=== PATIENT | female | born 1940 | race Caucasian/White ===

== ENCOUNTER 2023-10-31 11:06 | Outpatient (AMB) | payer MEDICARE, SELFPAY ==
--- NOTE | 2023-10-31 11:09 | A.OFFVIS_ITS ---
Vital Signs 10/31/23 11:11 Height 5 ft 7 in Weight 100 lb 4.965 oz BMI 15.7 BP 162/70 H Blood Pressure Location Rt brachial Position Sitting Pulse 80 Pulse Source Pulse Oximeter Pulse Oximetry (%) 98 Oxygen Delivery Method Room Air Intake Visit Reasons: Back pain/FM/CM Intake Note: New pt presents today for back pain consult. She states she has Osteoporosis. Mother had arthritis unsure if RA or OA. Dental Scheduling Coordinator Required: No Accompanied by: Spouse Allergies Benzodiazepines Adverse Reaction (Verified 10/31/23 11:14) Unknown Medication List - Last Reconciled 10/31/23 by Natalie Aceves MD ibuprofen 200 mg PO DAILY PRN HPI Comments Details: This is an 83-year-old female who presents for evaluation of diffuse pain. Patient states that she has had diffuse pain for many years has become worse over the last few years. She states that she has diffuse pain all the time. She has lower back pain and was evaluated by Dr. De La Fuente last year and had an L-[place] MRI and was told that she has significant stenosis. An injection was discussed and patient did not want to proceed with it. She also has tingling and numbness of her ankles and feet. This has been more progressive recently. He states that her balance is off. She walks with a rolling walker at home. She gets sharp headaches. She also has significant light sensitivity. She was evaluated by eye doctor in the past and no significant etiology was found. She was admitted with gallstone pancreatitis a 3-4 years ago and she has lost 25 lb since then. She states that everything has moved down hill since then. She is unaware of any family history of an autoimmune rheumatic disease. [facility] Medical History (Updated 10/31/23 @ 12:05 by Natalie Aceves MD) Aortic insufficiency Spinal stenosis Gallstone pancreatitis Osteoporosis Family History Mother Arthritis Social History Household Members: Spouse Alcohol intake: current Alcohol intake frequency: holidays/special occasions only Patient Tobacco Use Status: Never used Tobacco Female Reproductive History Menstrual Total pregnancies: 2 Ab induced: 0 Ab spontaneous: 0 Review of Systems Const Reports fatigue and Reports weight loss Eyes Reports itchy eyes and Reports photophobia ENT Reports tinnitus Card Reports dyspnea Resp Reports dyspnea Reports nocturia and Reports sexual dysfunction Musc Reports back pain, Reports arthralgias, Denies joint swelling, Reports muscle w eakness, Reports numbness and Reports tingling Skin/Breast Reports alopecia, Reports rash and Reports unusual bruising Neuro Reports numbness and Reports tingling Endo Reports fatigue Aller/Immun Reports itchy eyes Physical Exam Vital Signs: Last Vital Signs Pulse 80 10/31/23 11:11 BP 162/70 H 10/31/23 11:11 Pulse Ox 98 10/31/23 11:11 Oxygen Delivery Method Room Air 10/31/23 11:11 BMI result Body Mass Index 15.7 Const General: cooperative, healthy appearing and comfortable Nutritional Appearance: thin Orientation/consciousness: patient oriented x3 Limitations: ambulation with walker HEENT Head: Yes normocephalic and Yes atraumatic Mouth: moist mucous membranes Eyes Other: Wearing sunglasses Direct Ophthalmoscopy: photophobia Resp Effort & Inspection: normal respiratory effort and able to speak in complete sentences Auscultation: clear to auscultation bilaterally Cardio Rate: regular rate Rhythm: regular rhythm Skin General skin exam: no rashes or lesions noted Neuro Other: Mildly reduced sensation and paresthesias of both ankles and feet Intact position sense of toes General: patient oriented x3 Extrem Other: Osteoarthritic changes of both hands with no active synovitis Nailfold capillaroscopy Multiple fibromyalgia tender points Negative straight leg raise test bilaterally Assessment & Plan Assessment & Plan (1) Fibromyalgia, primary: Code(s): M79.7 - Fibromyalgia Category: Medical Plan: This is an 83-year-old female who presents for evaluation of diffuse pain. Upon evaluation I do not see any evidence of an autoimmune rheumatic disease. Clinical picture consistent with fibromyalgia I had a long conversation with patient about her diagnosis and management. Discussed management of fibromyalgia with patient. Is a noninflammatory, non- autoimmune central afferent processing disorder leading to a diffuse pain syndrome. I suggested re-evaluation by a psychotherapist to address any potential underlying anxiety/depression/PTSD. Try to follow sleep hygiene practices. Consider a referral for a sleep study by her PCP. Discussed with patient that neuralgia symptoms generally improve with regular exercise. I suggested low-impact exercises such as water aerobics. She states that she is sensitive to chlorine. I suggested light exercises at home such as stretching. Discussed with patient that she can not do any strenuous or exercises with significant twisting given her history of severe osteoporosis Medication such as Cymbalta can be considered Follow-up with PCP (2) Peripheral neuropathy: Code(s): G62.9 - Polyneuropathy, unspecified Category: Medical Qualifiers: Peripheral neuropathy type: polyneuropathy, unspecified Qualified Code(s): G62.9 - Polyneuropathy, unspecified Plan: Recommend neurology evaluation (3) Bilateral headaches: Code(s): R51.9 - Headache, unspecified Category: Medical Plan: Recommend neurology evaluation (4) Osteoporosis: Comment: Last bone density 2014, T. -4.1 AP spine, 6.6% decrease from prior, T. -3 in femoral neck, and -2.7 total femur with 7% decrease Code(s): M81.0 - Age-related osteoporosis without current pathological fracture Category: Medical Qualifiers: Osteoporosis type: age-related Presence of current pathological fracture: without current pathological fracture Qualified Code(s): M81.0 - Age- related osteoporosis without current pathological fracture Plan: Discussed with patient that she has severe osteoporosis. She is at high risk of fractures. She was evaluated by a physician in the past and she declined treatment. She again declined treatment today. She stated that she always gets side effects with any medication. Recommended vitamin-D, weight-bearing exercise and avoiding falls Plan I spent 55 minutes reviewing patient's chart, reviewing the [place] chart, evaluating patient, ordering diagnostic workup, counseling patient and documenting in the chart Coding Level of Care Code New Pt Level 4 (62840) Diagnoses Fibromyalgia, primary M79.7 Peripheral polyneuropathy G62.9 Peripheral neuropathy type: polyneuropathy, unspecified Bilateral headaches R51.9 Age-related osteoporosis without current pathological fracture M81.0 Osteoporosis type: age-related Presence of current pathological fracture: without current pathological fracture
[2023-10-31 11:11] VITALS: BP 162/70; PULSE 80; O2SAT 98; BMI 15.7
== END 2023-10-31 11:54 | disposition home or self-care (01) ==
PROVIDERS: PCP Family Medicine; Visit Provider Student in an Organized Health Care Education/Training Program
DX: M79.7 Fibromyalgia (principal); G62.9 Polyneuropathy, unspecified; R51.9 Headache, unspecified; M81.0 Age-related osteoporosis without current pathological fracture
CPT/HCPCS: 99204

== ENCOUNTER → 2023-10-31 11:06 | Outpatient (BNVA) | payer MEDICARE, SELFPAY | PROVIDERS: PCP Family Medicine; Visit Provider Student in an Organized Health Care Education/Training Program | DX: M79.7 Fibromyalgia (principal); M81.0 Age-related osteoporosis without current pathological fracture; G62.9 Polyneuropathy, unspecified; R51.9 Headache, unspecified | CPT/HCPCS: 99202 ==

== ENCOUNTER 2023-11-13 14:46 | Outpatient (AMB) | payer MEDICARE, SELFPAY ==
--- NOTE | 2023-11-13 15:06 | A.OFFPC_ITS ---
Vital Signs 11/13/23 15:07 Height 5 ft 7 in Weight 99 lb 2 oz BMI 15.5 BP 146/86 H Blood Pressure Location Lt brachial Position Sitting Respiration 12 Pulse 81 Pulse Source Pulse Oximeter Pulse Oximetry (%) 99 Oxygen Delivery Method Room Air Intake Visit Reasons: Establish Care first time being seen Intake Note: Patient is here to establish care. Patient reports she takes no medications and considers herself a medical mystery. Patient reports she has been diagnosed with fibromyalgia and osteoporosis. Editor Map Required: No Accompanied by: Spouse Allergies Benzodiazepines Adverse Reaction (Verified 11/13/23 15:19) Unknown Tobacco use date assessed: 11/13/23 Fall risk assessment: No Falls in past year Last assessed Fall Risk: 11/13/23 Dental Screening Dental Screen Date: 11/13/23 Did you have a dental visit in the last 12 months?: Yes Did you have a dental problem in the last 6 months where you did not have access to dental care?: No Was dental information given to patient?: Patient has dentist HPI HPI Comments History of Present Illness Details This is an 83-year-old female with a past medical history of polya rthralgia, headaches, fibromyalgia, neuropathy presenting to establish care. Transfer from [facility]. [facility] -Was seen in walk in for evaluation of d iffuse pain. Referred to rheumatology. She has seen them-Dr Aceves. There was no evidence on exam of rheumatologic process at the times. Clinical and physical exam c/w fibromyalgia. She has been very intolerant of medications in the past. She would consider rightmed testing. - She has lower back pain and was evalua raj by Dr. De La Fuente last year and had an L-spine MRI and was told that she has significant stenosis. An injection was discussed and patient did not want to proceed with it. She also has tingling and numbness of her ankles and feet. This has been more progressive recently. He states that her balance is off. She walks with a rolling walker at home. Neuro- She gets sharp headaches, sometimes tingling, burning. She also has significant light sensitivity. She was evaluated by eye doctor in the past and no significant etiology was found. She was admitted with gallstone pancreatitis a 3-4 years ago and she has lost 25 lb since then. She states that everything has moved down hill since then. ROS see HPI PHYSICAL EXAM: GENERAL: Alert and oriented x 3. NAD EYES: EOMI. Anicteric. No temporal artery swelling HENT: Moist mucous membranes. No scleral icterus. No cervical lymphadenopathy. LUNGS: Clear to auscultation bilaterally. CARDIOVASCULAR: Regular rate and rhythm. No murmur. No JVD. ABDOMEN: Soft, non-tender +bs EXTREMITIES: No edema. Non-tender. MSK: No joint warmth. Mild hypertrophy PIP, DIP joints SKIN: No rashes or lesions. Warm. NEUROLOGIC: No focal neurological deficits. CN II-XII grossly intact PSYCHIATRIC: Cooperative. Appropriate mood and affect [facility] Medical History Aortic insufficiency Spinal stenosis Gallstone pancreatitis Osteoporosis Surgical History No pertinent past surgical history Family History Mother Arthritis Father Alcohol abuse Social History Household Members: Spouse Housing: House Alcohol intake: never Patient Tobacco Use Status: Never used Tobacco e-Cigarette/Vaping Use: Never Used service: No Current occupational status: retired Current occupational exposures/hazards: No Cognitive needs: No Hearing needs: No Vision needs: Yes Questionnaire PHQ-9 Over the last 2 weeks, how often have you been bothered by any of the following problems? 1. Little interest or pleasure in doing things: not at all 2. Feeling down, depressed, or hopeless: not at all 3. Trouble falling or staying asleep, or sleeping too much: not at all 4. Feeling tired or having little energy: several days 5. Poor appetite or overeating: not at all 6. Feeling bad about yourself - or that you are a failure or have let yourself or your family down: not at all 7. Trouble concentrating on things, such as reading the newspaper or watching television: not at all 8. Moving or speaking so slowly that other people could have noticed. Or the opposite - being so fidgety or restless that you have been moving around a lot more than usual: nearly every day 9. Thoughts that you would be better off or of hurting yourself in some way: not at all Total score: 4 Depression Screening Interpretation: Negative Depression Screening Done: Yes 46247 - PHQ-9 Billing: Yes Source: Developed by Drs. Tye Sutton, Olena Pappas, Denis Vasquez and colleagues, with an educational misael from [employer]. Thrive Questionnaire Date Thrive assessed: 11/13/23 I am a: Patient What is your living situation today?: I have a steady place to live Within the past 12 months, did the food you bought not last and you didn't have the money to get more?: Never true Within the past 12 months, did you worry whether your food would run out before you got money to buy more?: Never true Do you have trouble paying for medicines?: No Do you have trouble getting transportation to medical appointments?: No Do you have trouble paying your heating and electricity bill?: No Do you have trouble taking care of your child, family member or friend?: No Do you have trouble with day-to-day activities such as bathing, preparing meals, shopping, managing finances, etc.?: No Are you currently unemployed and looking for a job?: No Are you interested in more education?: No Please select the resources that you would like help with: None Currently or been in a relationship where the following occur: No concerns reported THRIVE Score: 0 AUDIT C Alcohol Use Questionnaire (AUDIT-C) 1. How often do you have a drink containing alcohol?: Never 3. How often do you have six or more drinks on one occasion?: Never Total Score: 0 MARCIAL-7 AMB Questionnaire MARCIAL-7 Date MARCIAL - 7 assessed: 11/13/23 Feeling nervous, anxious, or on edge: 0 = Not at all Not being able to stop or control worryin = Not at all Worrying too much about different things: 0 = Not at all Trouble relaxin = Not at all Being so restless that it is hard to sit still: 0 = Not at all Becoming easily annoyed or irritable: 0 = Not at all Feeling afraid as if something awful might happen: 0 = Not at all Total MARCIAL-7 score (0-4 normal; 5-9 mild; 10-14 moderate; 15-21 severe): 0 Source: Developed by Drs. Tye Sutton, Olena Pappas, Denis Vasquez and colleagues, with an educational misael from [employer] MARCIAL-7 Assessment Billing MARCIAL-7 Assessment Tool: MARCIAL-7 Assessment 58604 Physical exam (Primary Care) Vital Signs: Last Vital Signs Pulse 81 11/13/23 15:07 Resp 12 11/13/23 15:07 BP 146/86 H 11/13/23 15:07 Pulse Ox 99 11/13/23 15:07 Oxygen Delivery Method Room Air 11/13/23 15:07 BMI result Body Mass Index 15.5 Tobacco/Smoking Status: Tobacco use Status Tobacco use date assessed 11/13/23 11/13/23 15:21 Patient Tobacco Use Status Never used Tobacco 11/13/23 15:24 e-Cigarette/Vaping Use Never Used 11/13/23 15:24 PHQ-9: PHQ-9 Score PHQ-9: Total score 4 11/18/23 10:29 Depression Screening Interpretation: Negative Thrive Assessment: Date of Thrive Assessment Date Thrive assessed 11/13/23 11/13/23 15:21 Currently or been in a relationship where the following occur: No concerns reported Assessment and Plan Assessment & Plan (1) Osteoporosis: Code(s): M81.0 - Age-related osteoporosis without current pathological fracture Qualifiers: Osteoporosis type: age-related Presence of current pathological fracture: without current pathological fracture Qualified Code(s): M81.0 - Age- related osteoporosis without current pathological fracture Plan: declines treatment (2) Fibromyalgia, primary: Code(s): M79.7 - Fibromyalgia Plan: plan for rightmed testing (3) Peripheral neuropathy: Code(s): G62.9 - Polyneuropathy, unspecified Qualifiers: Peripheral neuropathy type: polyneuropathy, unspecified Qualified Code(s): G62.9 - Polyneuropathy, unspecified (4) Bilateral headaches: Code(s): R51.9 - Headache, unspecified Plan: check ESR, CRP in setting of vision changes, polyarthralgia Orders: Orders Lyme IgG/IgM w/reflex to WB 11/16/23 G62.9 - Polyneuropathy, unspecified, M79.7 - Fibromyalgia, M81.0 - Age-related osteoporosis without current pathological fracture, R51.9 - Headache, unspecified Comprehensive Met. Panel 11/16/23 G62.9 - Polyneuropathy, unspecified, M79.7 - Fibromyalgia, M81.0 - Age-related osteoporosis without current pathological fracture, R51.9 - Headache, unspecified Rheumatoid Factor 11/16/23 G62.9 - Polyneuropathy, unspecified, M79.7 - Fibromyalgia, M81.0 - Age-related osteoporosis without current pathological fracture, R51.9 - Headache, unspecified Cyclic Citrullinated Peptide 11/16/23 G62.9 - Polyneuropathy, unspecified, M79.7 - Fibromyalgia, M81.0 - Age-related osteoporosis without current pathological fracture, R51.9 - Headache, unspecified FARHANA Reflex Titer and Pattern 11/16/23 G62.9 - Polyneuropathy, unspecified, M79.7 - Fibromyalgia, M81.0 - Age-related osteoporosis without current pathological fracture, R51.9 - Headache, unspecified Erythrocyte Sedimentation Rate 11/16/23 G62.9 - Polyneuropathy, unspecified, M79.7 - Fibromyalgia, M81.0 - Age-related osteoporosis without current p athological fracture, R51.9 - Headache, unspecified Complete Blood Count Auto Diff 11/16/23 G62.9 - Polyneuropathy, unspecified, M79.7 - Fibromyalgia, M81.0 - Age-related osteoporosis without current pathological fracture, R51.9 - Headache, unspecified Coding Level of Care Code New Pt Level 5 (06791) Diagnoses Age-related osteoporosis without current pathological fracture M81.0 Osteoporosis type: age-related Presence of current pathological fracture: without current pathological fracture Fibromyalgia, primary M79.7 Peripheral polyneuropathy G62.9 Peripheral neuropathy type: polyneuropathy, unspecified Bilateral headaches R51.9 Additional Codes MARCIAL-7 Assessment Billing - MARCIAL-7 Assessment Tool: MARCIAL-7 Assessment 66785 ([id number]) Time Spent (min) 70
[2023-11-13 15:07] VITALS: BP 146/86; PULSE 81; RESP 12; O2SAT 99; BMI 15.5
== END 2023-11-13 16:36 | disposition home or self-care (01) ==
PROVIDERS: PCP Internal Medicine; Visit Provider Internal Medicine
DX: M81.0 Age-related osteoporosis without current pathological fracture (principal); M79.7 Fibromyalgia; G62.9 Polyneuropathy, unspecified; R51.9 Headache, unspecified
CPT/HCPCS: 99205

== ENCOUNTER 2023-11-16 10:23 | Outpatient (REF) | payer MEDICARE, SELFPAY ==
[2023-11-16 14:04] LABS: MANUAL DIFF FLAG NO
[2023-11-16 14:22] LABS: Basophils Absolute Auto 0.1 X10*3/uL (0.0-0.2); Basophils Percent Auto 1.6 % (0-2); Eosinophils Absolute Auto 0.1 X10*3/uL (0.0-0.4); Hematocrit 34.8 % (37.0-47.0); Hemoglobin 11.5 g/dl (12.0-16.0); Imm Gran Abs Auto 0.02 X10*3/uL (0.00-0.03); Imm Gran Pct Auto 0.4 % (0.0-0.4); Lymphocytes Absolute Auto 1.4 X10*3/uL (1.2-4.9); Lymphocytes Percent Auto 27.6 % (20-40); Mean Corpuscular Hemoglobin 31.3 pg (27.0-33.0); Mean Corpuscular Volume 94.6 fL (80.0-98.0); Mean Platelet Volume 10.3 fL (9.4-12.3); Monocytes Absolute Auto 0.6 X10*3/uL (0.1-1.2); Monocytes Percent Auto 12.5 % (2-11); Neutrophils Absolute Auto 2.9 x10*3/uL (2.0-8.3); Neutrophils Percent Auto 56.9 % (45-73); Platelet Count 223 X10*3/uL (160-400); Red Blood Count 3.68 X10*6/uL (4.20-5.50); Red Cell Distribution Width 13.5 % (11.0-16.0)
[2023-11-16 14:30] LABS: Alanine Aminotransferase 16 U/L (0-31); Albumin Level 4.5 g/dL (3.5-5.0); Alkaline Phosphatase 69 U/L (39-117); Anion Gap 11 (12-20); Aspartate Amino Transferase 24 U/L (5-31); Bilirubin Total 1.1 mg/dL (0.0-1.0); Blood Urea Nitrogen 20 mg/dL (9-16); Calcium 9.9 mg/dL (8.4-10.2); Carbon Dioxide 31 mmol/L (22-29); Chloride 103 mmol/L (96-108); Estimated Glomerular Filt Rate 51; Glucose Random 74 mg/dL (60-115); Potassium 4.2 mmol/L (3.3-5.1); Sodium 141 mmol/L (135-145); Total Protein 6.9 g/dL (6.5-8.0)
[2023-11-16 14:31] LABS: Rheumatoid Factor 19.6 IU/mL (<15.0)
[2023-11-16 15:25] LABS: Erythrocyte Sedimentation Rate 6 MM/HR (0-20)
[2023-11-19 17:33] LABS: Lyme Abs Screen <0.90 index
[2023-11-21 09:34] LABS: Cyclic Citrullinated Peptide <16 UNITS
[2023-11-22 15:13] LABS: Anti Nuclear Antibody Screen NEGATIVE (NEGATIVE)
== END 2023-11-16 10:24 | disposition home or self-care (01) ==
LOC: HO.WFDLDS 10:23
PROVIDERS: Visit Provider Internal Medicine
DX: M81.0 Age-related osteoporosis without current pathological fracture (principal); R51.9 Headache, unspecified; G62.9 Polyneuropathy, unspecified; M79.7 Fibromyalgia
CPT/HCPCS: 36415; 80053; 85025; 85652; 86038; 86200; 86431; 86617; 86618

== ENCOUNTER 2024-03-31 15:50 | Outpatient (AMB) | payer MEDICARE, SELFPAY ==
--- NOTE | 2024-03-31 16:08 | A.OFFPC_ITS ---
Vital Signs 03/31/24 16:14 03/31/24 16:16 Height 5 ft 7 in Weight 98 lb 2 oz BMI 15.4 BP 158/88 H 150/86 H Blood Pressure Location Rt brachial Rt brachial Position Sitting Sitting Pulse 90 Pulse Source Pulse Oximeter Pulse Oximetry (%) 97 Oxygen Delivery Method Room Air Intake Visit Reasons: PE Intake Note: Medical wellness visit Allergies Benzodiazepines Adverse Reaction (Verified 03/31/24 16:09) Unknown Tobacco use date assessed: 11/13/23 Dental Screening Dental Screen Date: 11/13/23 HPI HPI Comments History of Present Illness Details This is an 83-year-old female with a past medical history of polyarthralgia, headaches, fibromyalgia, neuropathy presenting for physical exam Ongoing constellation of issues -Polyarthralgia, polymyalgia. Headaches. Vision issues. Neuritis, neuralgia. MSK: Referred to rheumatology. She has seen them-Dr Aceves. There was no evidence on exam of rheumatologic process at the times. Clinical and physical exam c/w fibromyalgia. She has been very intolerant of medications in the past. She would consider rightmed testing. She does have a remote history of - She has lower back pain and was evalua raj by Dr. De La Fuente last year and had an L-spine MRI and was told that she has significant stenosis. An injection was discussed and patient did not want to proceed with it. She also has tingling and numbness of her ankles and feet. This has been more progressive recently. He states that her balance is off. She walks with a rolling walker at home. Neuro- She gets sharp headaches, sometimes tingling, burning. She also has significant light sensitivity. She was evaluated by eye doctor in the past and no significant etiology was found. She was admitted with gallstone pancreatitis a 3-4 years ago and she has lost 25 lb since then. She states that everything has gone down hill since then. Stopped mammograms at 72 Stopped colonoscopy ROS see HPI PHYSICAL EXAM: GENERAL: Alert and oriented x 3. NAD EYES: EOMI. Anicteric. No temporal artery swelling HENT: Moist mucous membranes. No scleral icterus. No cervical lymphadenopathy. LUNGS: Clear to auscultation bilaterally. CARDIOVASCULAR: Regular rate and rhythm. No murmur. No JVD. ABDOMEN: Soft, non-tender +bs EXTREMITIES: No edema. Non-tender. MSK: No joint warmth. Mild hypertrophy PIP, DIP joints SKIN: No rashes or lesions. Warm. NEUROLOGIC: No focal neurological deficits. CN II-XII grossly intact PSYCHIATRIC: Cooperative. Appropriate mood and affect [facility] Medical History Aortic insufficiency Spinal stenosis Gallstone pancreatitis Osteoporosis Surgical History No pertinent past surgical history Family History Mother Arthritis Father Alcohol abuse Social History (Updated 03/31/24 @ 16:13 by Georgiana Stanley CMA) Household Members: Spouse Housing: House 75 years or older and lives alone: No Alcohol intake: former Patient Tobacco Use Status: Never used Tobacco e-Cigarette/Vaping Use: Never Used service: No Current occupational status: retired Current occupational exposures/hazards: No Cognitive needs: No Hearing needs: No Vision needs: Yes Questionnaire PHQ-9 Over the last 2 weeks, how often have you been bothered by any of the following problems? 1. Little interest or pleasure in doing things: not at all 2. Feeling down, depressed, or hopeless: not at all 3. Trouble falling or staying asleep, or sleeping too much: not at all 4. Feeling tired or having little energy: nearly every day 5. Poor appetite or overeating: not at all 6. Feeling bad about yourself - or that you are a failure or have let yourself or your family down: not at all 7. Trouble concentrating on things, such as reading the newspaper or watching television: not at all 8. Moving or speaking so slowly that other people could have noticed. Or the opposite - being so fidgety or restless that you have been moving around a lot more than usual: not at all 9. Thoughts that you would be better off or of hurting yourself in some way: not at all Total score: 3 Depression Screening Interpretation: Negative (neg) Depression Screening Done: Yes 29848 - PHQ-9 Billing: Patient declined-do not bill Source: Developed by Drs. Tye Sutton, Olena Pappas, Denis Vasquez and colleagues, with an educational misael from [employer]. Thrive Questionnaire Date Thrive assessed: 03/25/24 I am a: Patient What is your living situation today?: I have a steady place to live Within the past 12 months, did the food you bought not last and you didn't have the money to get more?: Never true Within the past 12 months, did you worry whether your food would run out before you got money to buy more?: Never true Do you have trouble paying for medicines?: No Do you have trouble getting transportation to medical appointments?: No Do you have trouble paying your heating and electricity bill?: No Do you have trouble taking care of your child, family member or friend?: No Do you have trouble with day-to-day activities such as bathing, preparing meals, shopping, managing finances, etc.?: No Are you currently unemployed and looking for a job?: No Are you interested in more education?: No Please select the resources that you would like help with: None Currently or been in a relationship where the following occur: No concerns rep orted THRIVE Score: 0 AUDIT C Alcohol Use Questionnaire (AUDIT-C) 1. How often do you have a drink containing alcohol?: Never 3. How often do you have six or more drinks on one occasion?: Never Total Score: 0 MARCIAL-7 AMB Questionnaire MARCIAL-7 Date MARCIAL - 7 assessed: 03/31/24 Feeling nervous, anxious, or on edge: 0 = Not at all Not being able to stop or control worryin = Not at all Worrying too much about different things: 0 = Not at all Trouble relaxin = Not at all Being so restless that it is hard to sit still: 0 = Not at all Becoming easily annoyed or irritable: 0 = Not at all Feeling afraid as if something awful might happen: 0 = Not at all Total MARCIAL-7 score (0-4 normal; 5-9 mild; 10-14 moderate; 15-21 severe): 0 Source: Developed by Drs. Tye Sutton, Olena Pappas, Denis Vasquez and colleagues, with an educational misael from [employer]. MARCIAL-7 Assessment Billing MARCIAL-7 Assessment Tool: MARCIAL-7 Assessment 34813 Physical exam (Primary Care) Vital Signs: Last Vital Signs Pulse 90 03/31/24 16:14 BP 150/86 H 03/31/24 16:16 Pulse Ox 97 03/31/24 16:14 Oxygen Delivery Method Room Air 03/31/24 16:14 BMI result Body Mass Index 15.4 Tobacco/Smoking Status: Tobacco use Status Tobacco use date assessed 11/13/23 03/31/24 16:15 Patient Tobacco Use Status Never used Tobacco 03/31/24 16:15 e-Cigarette/Vaping Use Never Used 03/31/24 16:15 PHQ-9: PHQ-9 Score PHQ-9: Total score 3 04/01/24 13:48 Depression Screening Interpretation: Negative (neg) Thrive Assessment: Date of Thrive Assessment Date Thrive assessed 03/25/24 03/31/24 16:15 Currently or been in a relationship where the following occur: No concerns reported Coding Level of Care Code Est Pt Prev Care >65y(62274) Diagnoses Physical exam Z00.00 Polymyalgia M35.3 Polyarthralgia M25.50 Additional Codes MARCIAL-7 Assessment Billing - MARCIAL-7 Assessment Tool: MARCIAL-7 Assessment 33259 ([id number]) Assessment & Plan Assessment & Plan (1) Physical exam: Code(s): Z00.00 - Encounter for general adult medical examination without abnormal findings Category: Medical Plan: Preventive measures discussed Declines flu vaccine (2) Polymyalgia: Code(s): M35.3 - Polymyalgia rheumatica Category: Medical Plan: Last ESR was normal. RF slightly positive Trial 5mg prednisone daily. Aware of effect on bones Right med testing continue ophtho Referral to neurology for headaches, vision changes, neuropathy (3) Polyarthralgia: Code(s): M25.50 - Pain in unspecified joint Category: Medical Plan: see above Orders: Orders PT Evaluation and Treatment 03/31/24 R42 - Dizziness and giddiness Referrals Neurology Referral G62.9 - Polyneuropathy, unspecified, R42 - Dizziness and giddiness, R51.9 - Headache, unspecified Medications: New prednisone 5 mg PO DAILY 30 tabs 0RF
[2024-03-31 16:14] VITALS: BP 158/88; PULSE 90; O2SAT 97; BMI 15.4
[2024-03-31 16:16] VITALS: BP 150/86
== END 2024-03-31 17:01 | disposition home or self-care (01) ==
PROVIDERS: PCP Internal Medicine; Visit Provider Internal Medicine
DX: Z00.00 Encounter for general adult medical examination without abnormal findings (principal); M35.3 Polymyalgia rheumatica; M25.50 Pain in unspecified joint

== ENCOUNTER → 2024-03-31 15:50 | Outpatient (BNVA) | payer MEDICARE, SELFPAY | PROVIDERS: PCP Internal Medicine; Visit Provider Internal Medicine | DX: Z00.00 Encounter for general adult medical examination without abnormal findings (principal); M25.50 Pain in unspecified joint; M79.7 Fibromyalgia; M35.3 Polymyalgia rheumatica; G62.9 Polyneuropathy, unspecified; R42 Dizziness and giddiness; R51.9 Headache, unspecified | CPT/HCPCS: 96127; 99397 ==

== ENCOUNTER 2025-04-03 14:11 | Outpatient (AMB) | payer MEDICARE, SELFPAY ==
--- NOTE | 2025-04-03 14:20 | A.OFFPC_ITS ---
Vital Signs 04/03/25 14:25 Weight 94 lb 4 oz BP 177/96 H Blood Pressure Location Lt brachial Position Sitting Respiration 14 Pulse 85 Pulse Source Pulse Oximeter Temp 97.9 F Temp Source Oral Pulse Oximetry (%) 98 Oxygen Delivery Method Room Air Intake Visit Reasons: cpe Intake Note: Physical. Vertigo is worsening. 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 Headaches. Vision issues. Neuritis, neuralgia. -Worsening vertigo. Previously seen by Dr Melyssa DUMAS. Has been intolerant benzos in the past. Does not think she tried meclizine. MSK: Referred to rheumatology. She has seen them-Dr Aceves. There was no evidence on exam of rheumatologic process at the times. Clinical and physical exam c/w fibromyalgia. She has been very intolerant of medications in the past. She does tolerate prednisone and would like to take a small daily dose. - She has lower back pain and was evalua raj by Dr. De La Fuente last year and had an L-spine MRI and was told that she has significant stenosis. An injection was discussed and patient did not want to proceed with it. She also has tingling and numbness of her ankles and feet. Neuro- She gets sharp headaches, sometimes tingling, burning. She also has significant light sensitivity. She was evaluated by eye doctor in the past and no significant etiology was found. She was admitted with gallstone pancreatitis a 4-5 years ago and she has lost 25 lb since then. She states that everything has gone down hill since then. Stopped mammograms at 72 Stopped colonoscopy ROS see HPI PHYSICAL EXAM: GENERAL: Alert and oriented x 3. NAD EYES: EOMI. Anicteric. No temporal artery swelling HENT: Moist mucous membranes. No scleral icterus. No cervical lymphadenopathy. LUNGS: Clear to auscultation bilaterally. CARDIOVASCULAR: Regular rate and rhythm. PVC. +murmur No JVD. ABDOMEN: Soft, non-tender +bs EXTREMITIES: No edema. Non-tender. MSK: No joint warmth. Mild hypertrophy PIP, DIP joints SKIN: No rashes or lesions. Warm. NEUROLOGIC: No focal neurological deficits. CN II-XII grossly intact PSYCHIATRIC: Cooperative. Appropriate mood and affect [facility] Medical History (Updated 04/06/25 @ 06:42 by Carmen Lopez MD) Aortic insufficiency Spinal stenosis Gallstone pancreatitis Osteoporosis Surgical History No pertinent past surgical history Family History Mother Arthritis Father Alcohol abuse Social History Household Members: Spouse Housing: House 75 years or older and lives alone: No Alcohol intake: former Patient Tobacco Use Status: Never used Tobacco e-Cigarette/Vaping Use: Never Used service: No Current occupational status: retired Current occupational exposures/hazards: No Cognitive needs: No Hearing needs: No Vision needs: Yes Questionnaire PHQ-9 Over the last 2 weeks, how often have you been bothered by any of the following problems? 1. Little interest or pleasure in doing things: not at all 2. Feeling down, depressed, or hopeless: not at all 3. Trouble falling or staying asleep, or sleeping too much: not at all 4. Feeling tired or having little energy: several days 5. Poor appetite or overeating: not at all 6. Feeling bad about yourself - or that you are a failure or have let yourself or your family down: not at all 7. Trouble concentrating on things, such as reading the newspaper or watching television: not at all 8. Moving or speaking so slowly that other people could have noticed. Or the opposite - being so fidgety or restless that you have been moving around a lot more than usual: not at all 9. Thoughts that you would be better off or of hurting yourself in some way: not at all Total score: 1 Source: Developed by Drs. Tye Sutton, Olena Pappas, Denis Vasquez and colleagues, with an educational misael from [employer]. Thrive Questionnaire Date Thrive assessed: 04/01/25 I am a: Patient What is your living situation today?: I have a steady place to live Within the past 12 months, did the food you bought not last and you didn't have the money to get more?: Never true Within the past 12 months, did you worry whether your food would run out before you got money to buy more?: Never true Do you have trouble paying for medicines?: No Do you have trouble getting transportation to medical appointments?: No Do you have trouble paying your heating and electricity bill?: No Do you have trouble taking care of your child, family member or friend?: No Do you have trouble with day-to-day activities such as bathing, preparing meals, shopping, managing finances, etc.?: I choose not to answer this question Are you currently unemployed and looking for a job?: No Are you interested in more education?: No Please select the resources that you would like help with: None Currently or been in a relationship where the following occur: No concerns reported THRIVE Score: 0 MARCIAL-7 AMB Questionnaire MARCIAL-7 Date MARCIAL - 7 assessed: 03/31/24 Source: Developed by Drs. Tye Sutton, Olena Pappas, Denis Vasquez and colleagues, with an educational misael from [employer]. Physical exam (Primary Care) Vital Signs: Last Vital Signs Temp 97.9 F 04/03/25 14:25 Pulse 85 04/03/25 14:25 Resp 14 04/03/25 14:25 BP 177/96 H 04/03/25 14:25 Pulse Ox 98 04/03/25 14:25 Oxygen Delivery Method Room Air 04/03/25 14:25 Tobacco/Smoking Status: Tobacco use Status Tobacco use date assessed 04/03/25 04/03/25 14:29 Patient Tobacco Use Status Never used Tobacco 04/03/25 14:20 e-Cigarette/Vaping Use Never Used 04/03/25 14:20 PHQ-9: PHQ-9 Score PHQ-9: Total score 1 04/03/25 14:37 Thrive Assessment: Date of Thrive Assessment Date Thrive assessed 04/01/25 04/03/25 14:20 Currently or been in a relationship where the following occur: No concerns reported Coding Level of Care Code Est Pt Prev Care >65y(04021) Diagnoses Physical exam Z00.00 Polyarthralgia M25.50 Benign paroxysmal positional vertigo, unspecified laterality H81.10 Laterality: unspecified laterality Irregular heart beat I49.9 Assessment & Plan Assessment & Plan (1) Physical exam: Code(s): Z00.00 - Encounter for general adult medical examination without abnormal findings Category: Medical (2) Polyarthralgia: Code(s): M25.50 - Pain in unspecified joint Category: Medical (3) BPPV (benign paroxysmal positional vertigo): Code(s): H81.10 - Benign paroxysmal vertigo, unspecified ear Category: Medical Qualifiers: Laterality: unspecified laterality Qualified Code(s): H81.10 - Benign paroxysmal vertigo, unspecified ear (4) Irregular heart beat: Code(s): I49.9 - Cardiac arrhythmia, unspecified Category: Medical Plan 84 year old female for CPE Interval history reviewed. Vertigo-PT referral placed. Trial meclizine. Consider imaging if persistent Echo for aortic insuff, PVCs, shortness of breath. . Labs ordered Requests cologuard testing. Orders: Orders Comprehensive Met. Panel 04/03/25 I49.9 - Cardiac arrhythmia, unspecified, R01.1 - Cardiac murmur, unspecified Lipid Panel 04/03/25 I49.9 - Cardiac arrhythmia, unspecified, R01.1 - Cardiac murmur, unspecified Magnesium 04/03/25 I49.9 - Cardiac arrhythmia, unspecified, R01.1 - Cardiac murmur, unspecified TSH reflex Free T4 04/03/25 I49.9 - Cardiac arrhythmia, unspecified, R01.1 - Cardiac murmur, unspecified PT Evaluation and Treatment 04/03/25 H81.10 - Benign paroxysmal vertigo, unspecified ear CA echo transthoracic complete 04/03/25 I49.9 - Cardiac arrhythmia, unspecified, R01.1 - Cardiac murmur, unspecified Complete Blood Count Auto Diff 04/03/25 I49.9 - Cardiac arrhythmia, unspecified, R01.1 - Cardiac murmur, unspecified Referrals Cologuard Test Z12.11 - Encounter for screening for malignant neoplasm of colon, Z12.12 - Encounter for screening for malignant neoplasm of rectum Medications: New meclizine 25 mg PO DAILY PRN 30 tabs 3RF vertigo 30 days Refilled prednisone 5 mg PO DAILY 90 tabs 1RF
[2025-04-03 14:25] VITALS: BP 177/96; PULSE 85; RESP 14; TEMP 36.6; O2SAT 98
== END 2025-04-03 15:28 | disposition home or self-care (01) ==
LOC: HO.HMCFM 14:12
PROVIDERS: PCP Internal Medicine; Visit Provider Internal Medicine
DX: Z00.00 Encounter for general adult medical examination without abnormal findings (principal); M25.50 Pain in unspecified joint; H81.10 Benign paroxysmal vertigo, unspecified ear; I49.9 Cardiac arrhythmia, unspecified

== ENCOUNTER → 2025-04-03 14:11 | Outpatient (BNVA) | payer MEDICARE, SELFPAY | PROVIDERS: PCP Internal Medicine; Visit Provider Internal Medicine | DX: Z00.00 Encounter for general adult medical examination without abnormal findings (principal); M25.50 Pain in unspecified joint; H81.10 Benign paroxysmal vertigo, unspecified ear; I49.9 Cardiac arrhythmia, unspecified; R01.1 Cardiac murmur, unspecified; G62.9 Polyneuropathy, unspecified; R51.9 Headache, unspecified; M48.061 Spinal stenosis, lumbar region without neurogenic claudication; M79.7 Fibromyalgia; Z12.11 Encounter for screening for malignant neoplasm of colon; Z12.12 Encounter for screening for malignant neoplasm of rectum; Z13.30 Encounter for screening examination for mental health and behavioral disorders, unspecified | CPT/HCPCS: 96127; 99397 ==

== ENCOUNTER 2025-04-06 13:49 | Outpatient (REF) | payer MEDICARE, SELFPAY ==
[2025-04-06 18:28] LABS: MANUAL DIFF FLAG NO
[2025-04-06 18:40] LABS: Hematocrit 36.0 % (37.0-47.0); Hemoglobin 11.5 g/dl (12.0-16.0); Imm Gran Abs Auto 0.02 X10*3/uL (0.00-0.03); Imm Gran Pct Auto 0.4 % (0.0-0.4); Lymphocytes Absolute Auto 1.6 X10*3/uL (1.2-4.9); Mean Corpuscular HGB Conc 31.9 g/dl (31.0-35.0); Mean Corpuscular Hemoglobin 30.0 pg (27.0-33.0); Mean Corpuscular Volume 94.0 fL (80.0-98.0); NRBC Abs Auto 0.000 X10*3/uL (0.0-0.012); NRBC Pct Auto 0.0 /100WBC (0.0-0.2); Platelet Count 200 X10*3/uL (160-400); Red Blood Count 3.83 X10*6/uL (4.20-5.50); White Blood Count 5.4 X10*3/uL (4.8-10.8)
[2025-04-06 19:09] LABS: Alanine Aminotransferase 19 U/L (0-31); Albumin Level 4.5 g/dL (3.5-5.0); Alkaline Phosphatase 66 U/L (39-117); Anion Gap 9 (12-20); Aspartate Amino Transferase 29 U/L (5-31); Blood Urea Nitrogen 23 mg/dL (9-16); Calcium 9.4 mg/dL (8.4-10.2); Carbon Dioxide 29 mmol/L (22-29); Chloride 108 mmol/L (96-108); Cholesterol 243 mg/dL (<200); Estimated Glomerular Filt Rate 48; HDL Cholesterol 95 mg/dL (>40); Magnesium 2.1 mg/dL (1.6-2.6); Potassium 3.9 mmol/L (3.3-5.1); Sodium 142 mmol/L (135-145); Total Protein 6.5 g/dL (6.5-8.0); Triglycerides 88 mg/dL (<150)
== END 2025-04-06 13:50 | disposition home or self-care (01) ==
LOC: HO.WFDLDS 13:49
PROVIDERS: Visit Provider Internal Medicine
DX: Z13.6 Encounter for screening for cardiovascular disorders (principal); R01.1 Cardiac murmur, unspecified; I49.9 Cardiac arrhythmia, unspecified
CPT/HCPCS: 36415; 80053; 80061; 83735; 84443; 85025

== ENCOUNTER → 2025-05-13 12:55 | Outpatient (REF) | payer MEDICARE, SELFPAY ==
--- NOTE | 2025-05-13 12:59 | CA_ITS ---
Transthoracic Echocardiogram Patient (Last, First, Middle): Marilee Malone, Gender: F Date of : 1940 Age: 84 Procedure Date: 05/13/2025 Procedure Type: Transthoracic Echocardiogram Location: OP Height: 167.64 cm Weight: 42.64 kg BSA: 1.45 m2 Heart Rate: 90 bpm BP: 158 / 72 mmHg Pmp Certified Project Manager: SB Referring MD: Carmen Lopez MD Symptoms: R01.1 - Cardiac murmur, unspecified Study Quality: Adequate ECG Rhythm: Sinus with PVCs Conclusions: - The left ventricular systolic function is normal. The calculated ejection fraction is 63% by biplane method. - Moderately increased right ventricular cavity size. - There is moderate tricuspid valve regurgitation. Findings Left Ventricle Normal left ventricular cavity size. The left ventricular systolic function is normal. The calculated ejection fraction is 63% by biplane method. There is no evidence of regional wall motion abnormalities. Evidence suggests grade I (mild) diastolic dysfunction. Severe focal hypertrophy of the basal septum. Right Ventricle Moderately increased right ventricular cavity size. There is normal right ventricular systolic function. Atria The left atrium is normal in size. The right atrium is moderately dilated. Aortic Valve There is mild calcification of the aortic valve. There is no aortic valve stenosis. There is mild aortic valve regurgitation. Mitral Valve There is mild mitral annular calcification. There is trace mitral valve regurgitation. There is no mitral valve stenosis. Pulmonic Valve There is trace pulmonic valve regurgitation. Tricuspid Valve Normal tricuspid valve structure. There is moderate tricuspid valve regurgitation. There is no evidence of pulmonary hypertension. Great Vessels The asc aorta is normal in size. Venous The inferior vena cava is normal in size and collapses greater than 50% with inspiration. Pericardium/Pleural There is no evidence of pericardial effusion. Prior Study Comparison No prior study available for comparison. Measurements 2D Linear Measurements IVSd: 0.96 0.6-0.9/0.6-1.0 cm LVIDd: 4.02 3.9-5.3/4.2-5.9 cm LVIDd Index: 2.77 2.4-3.2/2.2-3.1 cm/m2 LVIDs: 3.23 2.0-3.6 cm LVPWd: 0.83 0.7-1.1 cm LA Diam: 2.90 2.7-3.8/3.0-4.0 cm LAIDs Index: 2.00 1.5-2.3 cm/m2 LV Mass: 135.67 67-162/88-224 g LV Mass Index: 93.56 43-95/49-115 g/m2 LVOT Diam: 2.00 3.0+(-)1.3 cm 2D Systolic Function EF 4C: 57.60 >55% EF 2C: 66.40 >55% EF BiP: 62.70 >55% Mitral Valve MV Pk E: 0.42 MV PK A: 0.96 MV Decel Time: 169.00 E/A: 0.40 E'Lateral: 5.11 E'Medial: 2.50 E/E' Med: 16.60 E/E' Lat: 8.10 PHT: 49.00 MVA PHT: 4.49 Decel [place]: 2.46 Aortic Valve AoV Pk Gabriel: 1.65 AoV Mn Gabriel: 1.19 AoV VTI: 0.30 AoV Pk Grad: 11.00 Aov Mn Grad: 6.00 CARLOS Cont.VTI: 2.80 AI Pk Gabriel: 5.00 AI VTI: 1.94 AI [place]: 3.07 LVOT LVOT Pk Gabriel: 1.60 LVOT Mn Gabriel: 1.08 LVOT VTI: 0.27 LVOT Pk Grad: 10.00 LVOT Mn Grad: 6.00 LVOT Diam: 2.00 LVOT Area: 3.14 Diastolic Function MV Pk E: 0.42 MV Pk A: 0.96 E/A: 0.40 E'Medial: 2.50 E/E' Med: 16.60 E' Laterial: 5.11 E/E' Lat: 8.10 Right Ventricle TAPSE (mm): 19.30 TVS' Gabriel: 10.20 Tricuspid Valve TR Pk Gabriel: 2.29 TR Pk Grad: 21.00 RA Press: 3.00 RVSP: 24.00 Great Vessels Aorta Sinus of Valsalva: 3.70 2.0-3.5 cm Ao Asc: 3.70 2.1-3.4 cm Pulmonary Valve PV Pk Gabriel: 0.77 Peak PV Grad: 2.00 NH Pk Gabriel: 1.74 Updated in Other Vendor System with Status of Final Juan C Gonzalez MD electronically signed on 05/14/2025 1:40:18 PM with status of Final
== END ==
LOC: HO.CARD 12:55
PROVIDERS: PCP Internal Medicine; Visit Provider Internal Medicine
DX: R01.1 Cardiac murmur, unspecified (principal); I49.9 Cardiac arrhythmia, unspecified
CPT/HCPCS: 93306

== ENCOUNTER → 2025-05-13 12:59 | Outpatient (BNV) | payer MEDICARE, SELFPAY | PROVIDERS: PCP Internal Medicine; Visit Provider Internal Medicine | DX: I36.1 Nonrheumatic tricuspid (valve) insufficiency (principal) | CPT/HCPCS: 93306 ==